=== PATIENT | male | born 1940 | race Caucasian/White ===

== ENCOUNTER 2017-10-01 03:58 | Emergency (ER) | payer OTHER, MEDICARE ==
[~2017-10-01] VITALS: Ht 180.3 cm; Wt 77.1 kg
[~2017-10-01 03:58] MED LIST: ASPIR 8181 MG PO; ATORVASTATIN CA10 MG PO; FISH OIL CONCEN1 SGL PO; LOPRESSOR50 MG PO; MULTIVITAMIN1 TAB PO; PRINIVIL10 MG PO; VALTREX500 MG PO
--- NOTE | 2017-10-01 04:22 | ED DYSPNEA/ASTHMA COMPLAINT ---
History of Present Illness General Chief Complaint: Upper Respiratory Sx/Fever Stated Complaint: PER PT COUGHING,SNEEZING,X'S 1 1/2 WKS Source: patient Exam Limitations: no limitations Vital Signs & Intake/Output Vital Signs & Intake/Output Vital Signs Date Time Temp Pulse Resp B/P B/P Pulse O2 O2 Flow FiO2 Mean Ox Delivery Rate 10/01 0600 97.3 62 16 112/65 96 Room Air 10/01 0545 Room Air 10/01 0410 97.1 51 16 116/66 97 Room Air Allergies Coded Allergies: NO KNOWN ALLERGIES (10/01/17) Reconcile Medications Amoxicillin/Potassium Clav (Augmentin 875-125 Tablet) 875 MG-125 MG TABLET 1 TAB PO BID bronchitis Aspirin (Ecotrin) 81 MG TABLET.DR 1 TAB PO DAILY HEART HEALTH (Reported) Atorvastatin Calcium (Lipitor) (Unknown Strength) TABLET (Unknown Dose) PO DAILY CHOLESTEROL (Reported) Benzonatate (Tessalon Perle) 100 MG CAPSULE 1 CAP PO TID PRN cough Lisinopril (Prinivil) (Unknown Strength) TABLET (Unknown Dose) PO DAILY BP ( Reported) Loratadine (Claritin) 10 MG TABLET 1 TAB PO DAILY allergies Metoprolol Tartrate (Lopressor) (Unknown Strength) TAB (Unknown Dose) PO BID BP (Reported) Multivitamin (Multiple Vitamins) 1 EACH TABLET 1 TAB PO DAILY SUPPLEMENT ( Reported) OMEGA-3 FATTY ACIDS (Fish Oil Concentrate) 1,000 MG CAPSULE 1 SGL PO DAILY SUPPLEMENT (Reported) Prednisolone 15 MG/5 ML SOLUTION 10 ML PO QDAY ASTHMA/bronchitis Valacyclovir Hydrochloride (Valtrex) 500 MG TABLET 2 TAB PO TID SHINGLES Triage Note: 77YO MALE TO TRIAGE W/CO "COLD SX X 1 WEEK" STATES "HE HAS BEEN SNEEZING AND COUGHING AND FEELS CONGESTED IN HIS CHEST. RA SAT = 97 Triage Nurses Notes Reviewed? yes Onset: Gradual Duration: day(s):, waxing and waning Timing: recent history Severity: mild, moderate Activities at Onset: none Prior Episodes/Possible Cause: no prior episodes Modifying Factors: Improves With: rest. Associated Symptoms: cough, wheezing HPI: 77 yo gentleman h/o of "dormant" MS, presents with 1.5 weeks of cough, phlegm, mild wheeze. "It started as a head cold, but now I have more phlegm." No fever, chills, cough, Past History Travel History Traveled to [place] past 21 day No Medical History Any Pertinent Medical History? see below for history Neurological: multiple sclerosis EENT: NONE Cardiovascular: hypertension, hyperlipidemia Respiratory: NONE Gastrointestinal: NONE Hepatic: NONE Renal: NONE Musculoskeletal: NONE Psychiatric: NONE Endocrine: NONE Surgical History Surgical History: non-contributory Psychosocial History What is your primary language Divehi Tobacco Use: Quit >30 days ago Family History Hx Contributory? No Review of Systems Review of Systems Constitutional: Reports: no symptoms. EENTM: Reports: no symptoms. Respiratory: Reports: no symptoms. Cardiovascular: Reports: no symptoms. GI: Reports: no symptoms. Genitourinary: Reports: no symptoms. Musculoskeletal: Reports: no symptoms. Skin: Reports: no symptoms. Neurological/Psychological: Reports: no symptoms. Hematologic/Endocrine: Reports: no symptoms. Immunologic/Allergic: Reports: no symptoms. All Other Systems: Reviewed and Negative Physical Exam Physical Exam General Appearance: well developed/nourished, mild distress Head: atraumatic, normal appearance Eyes: Bilateral: normal appearance. Ears, Nose, Throat: normal pharynx, normal ENT inspection Neck: normal inspection, supple, full range of motion Respiratory: bilateral mild rhonchi Cardiovascular: regular rate/rhythm Gastrointestinal: normal bowel sounds, soft, non-tender Extremities: normal inspection, normal capillary refill, normal range of motion, no edema Neurologic/Psych: no motor/sensory deficits, awake, alert, oriented x 3 Skin: intact, normal color, warm/dry Core Measures ACS in differential dx? No CVA/TIA Diagnosis No Sepsis Present: No Sepsis Focused Exam Completed? No Progress Differential Diagnosis: asthma, bronchitis, COPD, pneumonia Plan of Care: Orders Procedure Date/time Status AEROSOL (GEN) 10/01 601 Complete Diagnostic Imaging: Viewed by Me: Radiology Read. Discussed w/RAD: Radiology Read. CXR Impression: no acute abnormality, no infiltrates, normal size heart, normal mediastinum, PATIENT: HAM HAIRSTON PRESENT AGE: 77 PATIENT ACCOUNT NO: [id number] : 41 LOCATION: [facility] ORDERING PHYSICIAN: Shaan Angela MD SERVICE DATE: 10/01/172094 EXAM TYPE: RAD - XRY- PORTABLE CHEST XRAY EXAMINATION: XR PORTABLE CHEST CLINICAL INFORMATION: Cough, congestion for one week COMPARISON: 04/14/2009 TECHNIQUE: Portable frontal view of the chest was obtained. FINDINGS: Lung volumes are symmetric. No focal consolidation is seen. No evidence of pneumothorax, pleural effusion, or overt pulmonary edema. The cardiomediastinal contour is unremarkable. No acute osseous findings are seen. IMPRESSION: No acute cardiopulmonary findings. DICTATED BY: Anish Barahona MD DATE/TIME DICTATED:10/01/17513 SPRING FORMER:JEANMARIE DATE/TIME TRANSCRIBED:10/01/17513 CONFIDENTIAL, DO NOT COPY WITHOUT APPROPRIATE AUTHORIZATION. <Electronically signed in Other Vendor System> SIGNED BY: Anish Barahona MD 10/01/17518 Initial ED EKG: none Departure Departure Disposition: HOME OR SELF CARE Condition: Stable Clinical Impression Primary Impression: Bronchitis Referrals: Coral Alicea MD (PCP/Family) Departure Forms: Customer Survey General Discharge Information Prescriptions: Current Visit Scripts Loratadine (Claritin) 1 TAB PO DAILY #30 TAB Prednisolone 10 ML PO QDAY #40 ML Amoxicillin/Potassium Clav (Augmentin 875-125 Tablet) 1 TAB PO BID #20 TAB Benzonatate (Tessalon Perle) 1 CAP PO TID PRN cough #30 CAP Comments 10/01/17, 6:03am... pt feeling well after neb. cxr negative... he is otherwise well... pt stable for discharge w/ augmentin, prednisone, supportive medications... close follow up advised. Critical Care Note Critical Care Note Critical Care Time: non-applicable
[2017-10-01] MEDS ORDERED: TESSALON PERLE100 M1 PO (05:12)
[2017-10-01] MEDS ORDERED: AUGMENTIN 875-1 EACH PO (05:12)
[2017-10-01] MEDS ORDERED: PREDNISOLO15 MG/5 M4 PO (05:12)
[2017-10-01] MEDS ORDERED: CLARITIN10 M1 PO (05:12)
--- NOTE | 2017-10-01 05:19 | RADIOLOGY REPORT ---
EXAMINATION: XR PORTABLE CHEST CLINICAL INFORMATION: Cough, congestion for one week COMPARISON: 04/14/2009 TECHNIQUE: Portable frontal view of the chest was obtained. FINDINGS: Lung volumes are symmetric. No focal consolidation is seen. No evidence of pneumothorax, pleural effusion, or overt pulmonary edema. The cardiomediastinal contour is unremarkable. No acute osseous findings are seen. IMPRESSION: No acute cardiopulmonary findings.
[2017-10-01 06:00] VITALS: BP 112/65
[2017-10-04] MEDS ORDERED: PROVENTIL HFA6.7 GM INH (16:10)
== END 2017-10-01 06:01 ==
LOC: ERH 03:58
DX: J40 Bronchitis, not specified as acute or chronic (principal)
CPT/HCPCS: 1263; 71045; J3490

== ENCOUNTER 2017-12-29 05:34 | Inpatient (IN) | payer OTHER, MEDICARE ==
[~2017-12-29] VITALS: Ht 182.9 cm; Wt 75.3 kg
[~2017-12-29 05:34] MED LIST changes: +AUGMENTIN 875-1 EACH PO; +CLARITIN10 M1 PO; +PREDNISOLO15 MG/5 M4 PO; +PROVENTIL HFA6.7 GM INH; +TESSALON PERLE100 M1 PO
--- NOTE | 2017-12-29 06:03 | ED CARDIAC/CP/PALPITATIONS ---
History of Present Illness General Chief Complaint: Chest Pain Stated Complaint: CHEST PAIN Source: patient, family, old records, EMS Exam Limitations: no limitations Vital Signs & Intake/Output Vital Signs & Intake/Output Vital Signs Date Time Temp Pulse Resp B/P B/P Pulse O2 O2 Flow FiO2 Mean Ox Delivery Rate 12/29 0629 60 20 105/58 96 Room Air / 0626 58 20 105/59 96 Room Air 12/29 0610 64 20 102/54 96 Room Air 12/29 0603 54 22 111/57 96 Room Air 12/29 0550 Room Air 12/29 0538 97.7 64 22 123/60 99 Room Air Allergies Coded Allergies: NO KNOWN ALLERGIES (10/01/17) Reconcile Medications Albuterol Sulfate (Proventil Hfa) 90 MCG HFA.AER.AD 2 PUF INH Q4 ASTHMA Amoxicillin/Potassium Clav (Augmentin 875-125 Tablet) 875 MG-125 MG TABLET 1 TAB PO BID bronchitis Aspirin (Ecotrin) 81 MG TABLET.DR 1 TAB PO DAILY HEART HEALTH (Reported) Atorvastatin Calcium (Lipitor) (Unknown Strength) TABLET (Unknown Dose) PO DAILY CHOLESTEROL (Reported) Benzonatate (Tessalon Perle) 100 MG CAPSULE 1 CAP PO TID PRN cough Lisinopril (Prinivil) (Unknown Strength) TABLET (Unknown Dose) PO DAILY BP ( Reported) Loratadine (Claritin) 10 MG TABLET 1 TAB PO DAILY allergies Metoprolol Tartrate (Lopressor) (Unknown Strength) TAB (Unknown Dose) PO BID BP (Reported) Multivitamin (Multiple Vitamins) 1 EACH TABLET 1 TAB PO DAILY SUPPLEMENT ( Reported) OMEGA-3 FATTY ACIDS (Fish Oil Concentrate) 1,000 MG CAPSULE 1 SGL PO DAILY SUPPLEMENT (Reported) Prednisolone 15 MG/5 ML SOLUTION 10 ML PO QDAY ASTHMA/bronchitis Valacyclovir Hydrochloride (Valtrex) 500 MG TABLET 2 TAB PO TID SHINGLES Core Measure Meds Pre-Hospital aspirin Triage Note: BIBA FROM HOME. PER EMS, PT WOKE UP APPROX AN HOUR AGO WITH CHEST TIGHTNESS AND DIFFICULTY BREATHING. 20 RIGHT AC. 324MG ASA PO. BG 142. PT C/O CHEST TIGHTNESS AT THIS TIME. PER PT TIGHTNESS IS A 5/10. PT STATES "IT'S HARD TO CATCH MY BREATH." PT DENIES ANY OTHER COMPLAINTS AT THIS TIME. Triage Nurses Notes Reviewed? yes Onset: Just prior to arrival Duration: minute(s):, constant, continues in ED Timing: recent history Quality/Severity: moderate, tightness Location: substernal Radiation: no radiation Activities at Onset: sleep Prior Chest Pain/Card Workup: no prior chest pain Nitro Today/Relief: 0.4 mg x 1, provided by ED, complete relief Aspirin Today: 325 mg x 1, provided by EMS Associated Symptoms: shortness of breath HPI: Prior to admission the patient woke up with severe substernal chest tightness nonradiating associated with shortness of breath and diaphoresis. He received aspirin en route. He denies fever chills nausea vomiting diarrhea abdominal pain headache dysuria rash bleeding previous episodes. Past History Travel History Traveled to [place] past 21 day No Medical History Any Pertinent Medical History? see below for history Neurological: multiple sclerosis EENT: NONE Cardiovascular: hypertension, hyperlipidemia Respiratory: NONE Gastrointestinal: NONE Hepatic: NONE Renal: NONE Musculoskeletal: NONE Psychiatric: NONE Endocrine: NONE Surgical History Surgical History: non-contributory Psychosocial History What is your primary language Danish Tobacco Use: Quit >30 days ago Family History Hx Contributory? No Review of Systems Review of Systems Constitutional: Reports: see HPI, diaphoresis. EENTM: Reports: no symptoms. Respiratory: Reports: see HPI, short of breath. Cardiovascular: Reports: see HPI, chest pain. GI: Reports: no symptoms. Genitourinary: Reports: no symptoms. Musculoskeletal: Reports: no symptoms. Skin: Reports: no symptoms. Neurological/Psychological: Reports: no symptoms. Hematologic/Endocrine: Reports: no symptoms. Immunologic/Allergic: Reports: no symptoms. All Other Systems: Reviewed and Negative Physical Exam Physical Exam General Appearance: well developed/nourished, alert, awake, anxious, moderate distress Head: atraumatic, normal appearance Eyes: Bilateral: normal appearance, PERRL, EOMI. Ears, Nose, Throat: normal pharynx, normal ENT inspection, hearing grossly normal Neck: normal inspection, supple, full range of motion, no midline tenderness Respiratory: normal breath sounds, chest non-tender, no respiratory distress, quiet respiration, lungs clear Cardiovascular: regular rate/rhythm, normal peripheral pulses, norml femoral pulses equa Peripheral Pulses: 4+ carotid (R), 4+ carotid (L) Gastrointestinal: normal bowel sounds, soft, non-tender, no organomegaly Back: normal inspection, normal range of motion, no vertebral tenderness Extremities: normal inspection, normal capillary refill, normal range of motion, no edema Neurologic/Psych: no motor/sensory deficits, awake, alert, oriented x 3, normal gait, normal mood/affect Reflexes: 2+: bicep (R), bicep (L). Skin: intact, normal color, warm/dry Lymphatic: no anterior cervical shayla Core Measures ACS in differential dx? Yes CVA/TIA Diagnosis No Sepsis Present: No Sepsis Focused Exam Completed? No Progress Differential Diagnosis: atrial fibrillation, CHF/pulm edema, costochondritis, hyperkalemia, hypovolemia Plan of Care: Orders Procedure Date/time Status Regular Diet 12/29 B Active OXYGEN SETUP (GEN) 12/29 710 Active Saline Lock 12/29 710 Active Admit to inpatient 12/29 710 Active Vital Signs 12/29 710 Active Activity/Ambulation 12/29 710 Active Code Status 12/29 710 Active TROPONIN LEVEL 12/29 548 Complete MAGNESIUM 12/29 548 Complete LIPASE 12/29 548 Complete COMPREHENSIVE METABOLIC PANEL 12/29 548 Complete CBC WITHOUT DIFFERENTIAL 12/29 548 Complete B-TYPE NATRIURETIC PEP (BNP) 12/29 548 Complete EKG 12/29 540 Active Laboratory Tests 12/29/17 0555: Anion Gap 7, Estimated GFR > 60, BUN/Creatinine Ratio 30.0 H, Glucose 117 H, Calcium 9.4, Magnesium 2.1, Total Bilirubin 1.3, AST 27, ALT 36, Alkaline Phosphatase 71, Troponin I 0.04, Lgo-T-Avsoqonmoig Pept 1500 H, Total Protein 6.6, Albumin 3.8, Globulin 2.8, Albumin/Globulin Ratio 1.4, Lipase 92, CBC w Diff NO MAN DIFF REQ, RBC 4.06 L, MCV 95.3 H, MCH 32.5 H, MCHC 34.1, RDW 13.3 , MPV 8.9, Gran % 72.3, Lymphocytes % 10.6 L, Monocytes % 11.0 H, Eosinophils % 5.6 H, Basophils % 0.5, Absolute Granulocytes 9.3 H, Absolute Lymphocytes 1.4, Absolute Monocytes 1.4 H, Absolute Eosinophils 0.7, Absolute Basophils 0.1 Diagnostic Imaging: Viewed by Me: Radiology Read. Discussed w/RAD: Radiology Read. Radiology Impression: Interstitial pulmonary edema. Initial ED EKG: normal axis, none, normal intervals, normal p-waves, normal QRS complex, nonspecific ST T wave chg Prior EKG: changed (flat t AVL) Rhythm Strip: normal sinus rhythm Departure Departure Disposition: STILL A PATIENT Condition: Stable Clinical Impression Primary Impression: Chest pain in adult Secondary Impressions: CHF (congestive heart failure), Leukocytosis Referrals: Coral Alicea MD (PCP/Family) Departure Forms: Customer Survey General Discharge Information Admission Note Spoke With: Megha Alvarez MD Documentation of Exam: Documentation of any treatments & extenuating circumstances including Concerns Regarding Discharge (functional status, medication knowledge or non-compliance, living conditions, etc.) that warrant an admission rather than observation: Cardiac monitoring serial lab exam IV diuresis medication adjustment cardiology evaluation continuing care discharge planning Critical Care Note Critical Care Note Critical Care Time: 30-74 min (35)
[2017-12-29 06:14] LABS: ABSOLUTE BASOPHIL COUNT 0.1 /CUMM (0.0-0.2); ABSOLUTE EOSINOPHIL COUNT 0.7 /CUMM (0.0-0.7); ABSOLUTE GRANULOCYTE CT 9.3 /CUMM (1.4-6.5); ABSOLUTE LYMPH COUNT 1.4 /CUMM (1.2-3.4); ABSOLUTE MONOCYTE COUNT 1.4 /CUMM (0.10-0.60); BASOPHIL % 0.5 % (0.0-2.0); EOSINOPHIL % 5.6 % (0-5); HEMATOCRIT 38.7 % (42-52); MEAN CORPUSCULAR HGB 32.5 PG (27.0-31.0); MEAN CORPUSCULAR HGB CONC 34.1 G/DL (33.0-37.0); MEAN CORPUSCULAR VOLUME 95.3 FL (80.0-94.0); MEAN PLATELET VOLUME 8.9 FL (7.4-10.4); PLATELET COUNT 209 /CUMM (130-400); RBC DISTRIBUTION WIDTH 13.3 % (11.5-14.5); RED BLOOD CELL CT 4.06 /CUMM (4.70-6.10); WHITE BLOOD CELL COUNT 12.9 /CUMM (4.8-10.8)
[2017-12-29 06:21] LABS: GRANULOCYTE % 72.3 % (42.2-75.2)
--- NOTE | 2017-12-29 07:05 | RADIOLOGY REPORT ---
EXAMINATION: XR PORTABLE CHEST CLINICAL INFORMATION: 77-year-old male patient with chest pain and shortness of breath. COMPARISON: Portable chest x-ray on 10/01/2017. TECHNIQUE: Portable AP semierect view of the chest was obtained. FINDINGS: Reexamination shows the onset of bilateral interstitial pulmonary edema consistent with cardiac failure. There may be trace bilateral pleural effusions. IMPRESSION: Interstitial pulmonary edema.
--- NOTE | 2017-12-29 08:30 | History & Physical ---
Santiago Gordon 12/29/17 0828: General Information and HPI MD Statement: I have seen and personally examined HAM HAIRSTON and documented this H&P. The patient is a 77 year old M who presented with a patient stated chief complaint of chest tightness Source of Information: patient, family Exam Limitations: no limitations History of Present Illness: Mr Hairston is a 77-year-old gentleman with a PMHx of multiple sclerosis(dx'ed 56 yrs ago in remission), hypertension, hyperlipidemia, previous smoker(30 pk yr h/ o), with no previous cardiac history, came to the hospital with a chief concern of chest tightness that started a few hours prior to the hospital presentation. He was known to be in his usual state of health until a few days prior to the episode. He is usually active, and noticed decreased exercise tolerance; and reported increasing fatigue lately. Reported to have had pedal edema one day prior to the episode. No orthopnea, or exertional dyspnea. On the day of presentation, he reported to have chest tightness associated with dyspnea that woke him up from sleep around 4 AM , that lasted for approximately 30'-1 hour. As per the , Mr Hairston appeared diaphoretic and pale during the episode. He was given aspirin 325mg by the EMS, and NTG in the ER as per EMR which relieved his symptoms. No previous concerns. No recent stressors, or changes in diet. No history of salt indiscretion. No vision changes, no lightheadeness, palpitations , cough, fever or changes in urination. No tremors, or unintentional weight loss or weight gain. No neurological symptoms s/o stroke. No significant cardiac history. No previous cardiac work up, or hospitalizations. Allergies/Medications Allergies: Coded Allergies: NO KNOWN ALLERGIES (10/01/17) Home Med list Aspirin (Aspirin*) 81 MG TAB.CHEW 1 TAB PO DAILY HEART HEALTH (Reported) Atorvastatin Calcium (Lipitor) 10 MG TABLET 1 TAB PO DAILY heart health ( Reported) Finasteride (Proscar) 5 MG TABLET 1 TAB PO DAILY BLADDER (Reported) Lisinopril 10 MG TABLET 1 TAB PO DAILY BP (Reported) Metoprolol Tartrate (Lopressor) 50 MG TABLET 1 TAB PO BID heart health ( Reported) Compliance With Home Meds: GOOD Past History Travel History Traveled to [place] past 21 day No Medical History Neurological: multiple sclerosis EENT: NONE Cardiovascular: hypertension, hyperlipidemia Respiratory: NONE Gastrointestinal: NONE Hepatic: NONE Renal: NONE Musculoskeletal: NONE Psychiatric: NONE Endocrine: NONE Surgical History Surgical History: non-contributory Past Family/Social History Family History Relations & Conditions if any MOTHER Functional Ability ADLs Independent: dressing, eating, toileting, bathing. Review of Systems Review of Systems Constitutional: Reports: see HPI. Denies: chills, fever. EENTM: Denies: blurred vision, double vision, visual changes. Cardiovascular: Denies: chest pain. Respiratory: Reports: short of breath. Denies: cough. GI: Denies: diarrhea, melena. Genitourinary: Denies: dysuria. Musculoskeletal: Reports: back pain. Denies: joint pain. Skin: Denies: change in skin color. Neurological/Psychological: Reports: ataxia, numbness (due to long standing MS). Denies: anxiety, headache, paresthesia. Hematologic/Endocrine: Denies: bruising. Exam & Diagnostic Data Last 24 Hrs of Vital Signs/I&O Vital Signs Date Time Temp Pulse Resp B/P B/P Pulse O2 O2 Flow FiO2 Mean Ox Delivery Rate 12/29 0824 98.2 62 18 121/62 97 Room Air Room Air 12/29 0629 60 20 105/58 96 Room Air / 0626 58 20 105/59 96 Room Air 12/29 0610 64 20 102/54 96 Room Air 12/29 0603 54 22 111/57 96 Room Air 12/29 0550 Room Air 12/29 0538 97.7 64 22 123/60 99 Room Air Intake & Output 12/29 1600 12/29 0800 12/29 0000 Intake Total 0 Output Total Balance 0 Intake, Oral 0 Patient 175 lb Weight Weight Reported by Patient Measurement Method Physical Exam General Appearance Alert, Oriented X3, Cooperative, No Acute Distress Skin No Rashes, No Breakdown, No Significant Lesion Skin Temp/Moisture Exam: Warm/Dry Sepsis Skin Exam (color): Normal for Ethnicity HEENT Atraumatic, PERRLA, EOMI, Mucous Membr. moist/pink Neck Supple, No JVD, No thryomegaly Lymphatic Axillary nl, Cervical nl Cardiovascular Regular Rate, Normal S1, Normal S2, No Murmurs Lungs Clear to Auscultation, Normal Air Movement Abdomen Normal Bowel Sounds, Soft, No Tenderness, No Hepatospenomegaly Neurological Normal Speech, Strength at 5/5 X4 Ext, Normal Tone, Sensation Intact, Cranial Nerves 3-12 NL, Reflexes 2+ Extremities No Clubbing, No Cyanosis, Normal Pulses, No Tenderness/Swelling, pedal edema 1+ Vascular Normal Pulses, Pulses Symmetrical Sepsis Peripheral Pulse Location: Dorsalis Pedis Sepsis Peripheral Pulse Exam: Normal Sepsis Cap Refill Exam: <2 Sec Last 24 Hrs of Labs/Remigio: Laboratory Tests 12/29/17 0555: Anion Gap 7, Estimated GFR > 60, BUN/Creatinine Ratio 30.0 H, Glucose 117 H, Calcium 9.4, Magnesium 2.1, Total Bilirubin 1.3, AST 27, ALT 36, Alkaline Phosphatase 71, Troponin I 0.04, Ais-P-Tetkxhsfkho Pept 1500 H, Total Protein 6.6, Albumin 3.8, Globulin 2.8, Albumin/Globulin Ratio 1.4, Lipase 92, CBC w Diff NO MAN DIFF REQ, RBC 4.06 L, MCV 95.3 H, MCH 32.5 H, MCHC 34.1, RDW 13.3 , MPV 8.9, Gran % 72.3, Lymphocytes % 10.6 L, Monocytes % 11.0 H, Eosinophils % 5.6 H, Basophils % 0.5, Absolute Granulocytes 9.3 H, Absolute Lymphocytes 1.4, Absolute Monocytes 1.4 H, Absolute Eosinophils 0.7, Absolute Basophils 0.1 Diagnostic Data EKG Results NSR, LAD, LAFB, First degree heart block, Incomplete LBBB. CXR Results s/o Interstitial edema Assessment/Plan Assessment: Mr Hairston is a 77-year-old gentleman with a PMHx of multiple sclerosis, hypertension, hyperlipidemia, previous smoker, with no previous cardiac history, came to the hospital with a chief concern of chest tightness that started a few hours prior to the hospital presentation likely secondary to unstable angina or CHF. At the time of admission-temperature 97.7, pulse rate 64, respiration 22, blood pressure 123/60--respiration 20, pulse ox 96% on room air. EKG revealed normal sinus rhythm, LAD, LAFB, First degree HB, and incomplete LBBB. Pertinent lab findings- WBC 12.9 (granulocytes 72%), hemoglobin 13.2, platelets 209. Sodium 137, potassium 4.2, magnesium 2.1,bicarbonate 25 BUN 18, creatinine 0.6 AST 27, ALT 36, alkaline phosphatase 71. Troponin I 0.04, proBNP 1500. Chest x-ray revealed bilateral interstitial pulmonary edema. Etiology in this case is likely unstable angina with symptoms of angina w/o elevated cardiac enzymes with positive cardiac risk factors previous smoking, age > 50 male, HLD, HTN. Having these EKG findings which makes [place] a very important etiology that needs to be ruled out, that may have contributed to pulmonary edema. Other possibility is having a diastolic HF secondary to age+HTN , that may have caused pulmonary edema. Given this acute decompensated heart failure which is a rapidly progressive failure state given a possible precipitating event, diet/htn on chronic systolic or diastolic left-sided heart failure. Other etiologies such as myocardial ischemia should be ruled out.Patients with unstable angina requiring admission to inpatient hospital. Problem list: 1. Unstable angina, r/o ACS 2. Acute decompensated HF, very mild ( Echo pending ) 3. h/o MS 4. h/o HTN 5. h/o HLD 6. Leucocytosis ( livkely reactive, no granulocytosis ) # admit to telemetry for cardiac monitoring of any arrythmias. # non enteric coated aspirin 325 mg given by the EMS and daily aspirin and Atorvastatin 80mg daily. # serial electrocardiograms, cardiac enzymes every 8 hours # for the management of angina- NTG 0.5mg q6. # 2D Echo # metoprolol succinate 25mg BID, which can be increased to his home dose of 50mg BID once the echocardiogram is reviewed, and acute decompensation is ruled out. # No IV heparin at this time. Discuss w/ cards, if needed during the hospital course. # discuss early intervention with cardiac catheterization, if he develops any more symptoms. # check thyroid function # daily Ins and Outs,daily weights # IV diuretics furosemide 20 mg twice a day, since he is diuretic naive. #Check BEP daily while on diuretics. #supplemental oxygen as needed # Elevate head of the bed to reduce venous return #Consider NIPPV to reduce work of breathing, improve oxygenation, if symptoms get worse. # Continue ACEi Lisinopril 10mg which is his home dose. # CHF diet, 2gm salt restriction Code status- Full code. Med list updated. Called [facility]. As Ranked By This Provider Problem List: 1. CHF (congestive heart failure) 2. Chest pain in adult Core Measures/Misc (02/13) Acute Coronary Syndrome ACS Diagnosis: Yes Congestive Heart Failure Congestive Heart Failure Diagnosis Yes Cerebrovascular Accident CVA/TIA Diagnosis: No VTE (View Protocol) VTE Risk Factors Acute Medical Illness No Mechanical VTE Prophylaxis d/t N/A MechProphylax Ordered No VTE Pharm Prophylaxis d/t NA PharmProphylax ordered Sepsis (View protocol) Sepsis Present: No If YES complete Sepsis Event Note If YES complete Sepsis Event Note Megha Alvarez MD 12/29/17 1440: Core Measures/Misc (02/13) Sepsis (View protocol) If YES complete Sepsis Event Note If YES complete Sepsis Event Note Attending MD Review Statement Attending Statement Attending MD Statement: examined this patient, discuss w/resident/PA/DEPOT AGENT, agreed w/resident/PA/DEPOT AGENT, reviewed EMR data (avail), discussed with nursing, discussed with case mgmt, amended to note Attending Assessment/Plan: Patient seen and examined. I have reviewed and agree with the history and physical is admitted by the certified court/medical interpreter above. Patient was admitted to the hospital for management of acute pulmonary edema which appears to be secondary to congestive heart failure. We will receive diuresis with Lasix 20 mg IV daily as he does not appear to be overtly fluid overloaded and blood pressure was borderline earlier on today. An echocardiogram has been ordered and we will rule out acute coronary syndrome with serial troponins. If his troponins are negative he will require further risk stratification with a stress test. Will defer timing of the procedure to the cardiology service. Patient is noted to have leukocytosis. He is however afebrile and does not appear toxic. This is less likely due to an infectious etiology. Will repeat CBC in a.m. if patient becomes febrile will obtain blood cultures at that time.
[2017-12-29] MEDS ORDERED: ASPIRIN81 M4 PO (08:43)
[2017-12-29] MEDS ORDERED: ATORVASTATIN CA40 M1 PO (08:44)
[2017-12-29] MEDS ORDERED: LISINOPRIL10 M1 PO (08:44)
[2017-12-29] MEDS ORDERED: PROSCAR5 M1 PO (08:44)
[2017-12-29] MEDS ORDERED: LIPITOR10 M1 PO (09:12)
[2017-12-29] MEDS ORDERED: LOPRESSOR50 M1 PO (09:13)
[2017-12-29 10:43] VITALS: BP 130/76
[2017-12-29 14:43] VITALS: BP 128/75
--- NOTE | 2017-12-29 17:12 | Event Note ---
Event Note Event Note: Mr Hodge is a 77 y/o gentleman who was admitted in the morning with the cheif complint of chest pain and initial EKG consistent with Incomplete LBBB and poor R-wave progression in ant leads. Initial Troponin was negative but the 2nd one came back elevated to 19.0. He did not have any chest pain at that time and vitals were stable. Repeat EKG was done which continued to showed poor R-wave in ant leads consistent with ant wall RI. Patient was started on full anticoagulation with aspirin 325mg daily, Plavix 75mg daily after a 300mg loading dose, IV heparin per ACS protocol after discussion with Dr. Cortes. Nitroglycerin was already started since admission. Atorvastatin and metoprolol(home meds) were continued. He also had a 3 beat run of Vtac on monitoring tech. Patint was transferred to ICU with plans to trend troponins until they peak and was made NPO for cardiac cath in am. Patient should be transferred stat in case of any clinical deterioration.
--- NOTE | 2017-12-29 17:15 | Cons- Cardiology ---
General Information and HPI Consulting Request Date of Consult: 12/29/17 Requested By: Megha Alvarez MD History of Present Illness: Mr. Hodge is a 77 year old male with history of hypertension and dyslipidemia. He also carries a history of multiple sclerosis. He was awakened from sleep at about 4AM with severe precordial chest pressure that was non-radiating. It was associated with nausea and diaphoresis as well as shortness of breath. He otherwise denies lightheadedness or palpitations. He is ruling in for an ME by cardiac enzymes and has an IVCD on his ECG with abnormal R wave progression. Allergies/Medications Allergies: Coded Allergies: NO KNOWN ALLERGIES (10/01/17) Home Med List: Aspirin (Aspirin*) 81 MG TAB.CHEW 1 TAB PO DAILY HEART HEALTH (Reported) Atorvastatin Calcium (Lipitor) 10 MG TABLET 1 TAB PO DAILY heart health ( Reported) Finasteride (Proscar) 5 MG TABLET 1 TAB PO DAILY BLADDER (Reported) Lisinopril 10 MG TABLET 1 TAB PO DAILY BP (Reported) Metoprolol Tartrate (Lopressor) 50 MG TABLET 1 TAB PO BID heart health ( Reported) Review of Systems Review of Systems: A review of systems is unremarkable. Past History Travel History Traveled to [place] past 21 day No Medical History Blood Transfusion Hx: No Neurological: multiple sclerosis EENT: NONE Cardiovascular: hypertension, hyperlipidemia Respiratory: NONE Gastrointestinal: NONE Hepatic: NONE Renal: NONE Musculoskeletal: NONE Psychiatric: NONE Endocrine: NONE Blood Disorders: NONE Cancer(s): NONE SUPER[employer]OR [employer] DIVISION/Reproductive: NONE Surgical History Surgical History: non-contributory Family History Relations & Conditions If Any: MOTHER Psychosocial History Where Do You Live? Home Smoking Status: Former Smoker Functional Ability ADLs Independent: dressing, eating, toileting, bathing. Exam & Diagnostic Data Vital Signs and I&O Vital Signs Date Time Temp Pulse Resp B/P B/P Pulse O2 O2 Flow FiO2 Mean Ox Delivery Rate 12/29 1443 98.0 63 16 128/75 95 Room Air / 1333 134/88 12/29 1333 134/88 08 1043 97.7 63 18 130/76 96 Room Air 12/29 0950 97 Room Air Room Air 12/29 0824 98.2 62 18 121/62 97 Room Air Room Air 12/29 0629 60 20 105/58 96 Room Air /02 0626 58 20 105/59 96 Room Air 12/29 0610 64 20 102/54 96 Room Air 12/29 0603 54 22 111/57 96 Room Air 12/29 0550 Room Air 12/29 0538 97.7 64 22 123/60 99 Room Air Intake & Output 12/29 1600 12/29 0800 12/29 0000 12/28 1600 12/28 0800 12/28 0000 Intake Total 400 0 Output Total 2325 Balance -1925 0 Intake, Oral 400 0 Output, Urine 2325 Patient 177 lb 175 lb Weight Weight Bed scale Reported by Patient Measurement Method Physical Exam: General: WD/WN male in NAD; alert and oriented x 3 HEENT: NC/AT, PERRL, EOMI Neck: no JVD, no carotid bruit heart: RRR w/o murmur Lungs: clear bilaterally Abdomen: soft, NT, +ve bowel sounds Extremities: no edema Assessment/Plan Assessment/Plan * This patient is ruling in for a NSTEMI by cardiac enzymes. He is now pain free but has abnormal R wave progression consistent with an anterior ME. Follow cardiac enzymes until they peak. * Obtain an echocardiogram. * Begin full anticoagulation with aspirin 325mg daily, Plavix 75mg daily after a 300mg loading dose, IV heparin. * Begin Atorvastatin 80mg daily. Continue Metoprolol 50mg BID and Lisinopril 10mg daily. Begin NTG paste 1/2 inch Q 6 hours. * Begin supplemental oxygen. * A cardiac catheterization is planned for the morning. Will have a low threshold for emergent cath, if necessary. Consult Acknowledgment - Thank you for your consult request.
--- NOTE | 2017-12-29 17:37 | Patient Discharge Instructions ---
Discharge Instructions General Discharge Information You were seen/treated for: Chest pain Special Instructions: being transferred for cardiac catheterization Diet Additional DIET Information: NPO Activity Activity Self Limited: Yes Acute Coronary Syndrome Inclusion Criteria At DC or during hospital stay patient has or had the following: ACS DIAGNOSIS Yes Discharge Core Measures Meds if any: Prescribed or Continued at Discharge Meds if any: NOT Prescribed or Continued at Discharge Congestive Heart Failure Inclusion Criteria At DC or during hospital stay patient has or had the following: CHF DIAGNOSIS No Discharge Core Measures Meds if any: Prescribed or Continued at Discharge Meds if any: NOT Prescribed or Continued at Discharge Cerebrovascular accident Inclusion Criteria At DC or during hospital stay patient has or had the following: CVA/TIA Diagnosis No Discharge Core Measures Meds if any: Prescribed or Continued at Discharge Meds if any: NOT Prescribed or Continued at Discharge Venous thromboembolism Inclusion Criteria VTE Diagnosis No VTE Type NONE VTE Confirmed by (Test) NONE Discharge Core Measures - Per Current guidelines, there needs to be overlap - treatment for the first 5 days of Warfarin therapy. - If discharged on Warfarin prior to 5 days of - overlap therapy, the patient will need to be - assessed for post discharge needs including - *Post discharge parental anticoagulation - *Warfarin and/or parental anticoagulation education - *Follow up date to check INR post discharge At least 5 days overlap therapy as Inpatient No Meds if any: Prescribed or Continued at Discharge Note: Overlap Therapy is Warfarin and Anticoagulant Meds if any: NOT Prescribed or Continued at Discharge
[2017-12-29] MEDS ORDERED: ATORVASTATIN CA80 M1 PO (17:40)
[2017-12-29] MEDS ORDERED: ASPIRIN EC325 M2 PO (17:40)
[2017-12-29] MEDS ORDERED: NITRO-BID1 GM TOP (17:40)
[2017-12-29] MEDS ORDERED: PLAVIX75 M1 PO (17:41)
--- NOTE | 2017-12-29 17:54 | Discharge Summary ---
Visit Information Visit Dates Admission Date: 12/29/17 Discharge Date: 12/30/17 Hospital Course Course Attending Physician: Zoe Alvarez MDadryan Primary Care Physician: Deanne LUEVANO,[place] Hospital Course: Mr Hodge is a 77-year-old gentleman with a PMHx of multiple sclerosis(dx'ed 56 yrs ago in remission), hypertension, hyperlipidemia, previous smoker(30 pk yr h/ o), with no previous cardiac history, came to the hospital with a chief concern of chest tightness that started a few hours prior to the hospital presentation. Patient was admitted to the telemetry floor later trasferred to ICU for management of following issues; 1. NSTEMI 2. Mild interstitial edema 3. h/o MS, HTN and HLD 4. SIRS - Fever and Leucocytosis ( livkely reactive, no granulocytosis ) Patient's initial EKG showed q waves in ant leads,left axis deviation and poor R -wave progression consistent with anterior ME. Initial troponin was negative but the second troponin level peaked to 19.0. Cardiology consult was called and patient was started on aspirin 325 mg daily, IV heparin, nitroglycerin, high- dose atorvastatin, and Plavix. Patient also had a 3 minute run of V. tach on monitoring specialist and was transferred to ICU. Echocardiogram was ordered which was pending. Home medications including metoprolol and lisinopril were continued. As patient spiked a fever of 101.4 (likely inflammatory response) obtained blood, urine and sputum cultures. Results are pending ICU course Patient remained chest pain free and continued on heparin drip. Troponin continued to trend up from 19 to 35 at 8pm Given hemodynamically stable and asymptomatic we continued to trend troponins overnight trended up to 36. The pt is currently being transfered to [facility] for cardiac catheterization in am. Allergies: Coded Allergies: NO KNOWN ALLERGIES (10/01/17) Significant Procedures: XRY-PORTABLE CHEST XRAY FINDINGS: Reexamination shows the onset of bilateral interstitial pulmonary edema consistent with cardiac failure. There may be trace bilateral pleural effusions. IMPRESSION: Interstitial pulmonary edema. Pertinent Lab Results: Troponin 19.0 Disposition Summary Disposition Principal Diagnosis: acute myocardial infarction Additional Diagnosis: Interstitial edema H/O MS, HTN and HLD Leucocytosis ( livkely reactive, no granulocytosis ) Discharge Disposition: other general hospital Discharge Instructions General Discharge Information Code Status: Full Code Patient's Diet: Heart Healthy Patient's Activity: As tolerated Follow-Up Instructions/Appts: Please follow up with with your threader operator within a week after discharge. Medications at Discharge Discharge Medications: Stop taking the following medications: Aspirin (Aspirin*) 81 MG TAB.CHEW ORAL DAILY Atorvastatin Calcium (Lipitor) 10 MG TABLET ORAL DAILY Continue taking these medications: Lisinopril (Lisinopril) 10 MG TABLET 1 Tablet ORAL DAILY Finasteride (Proscar) 5 MG TABLET 1 Tablet ORAL DAILY Metoprolol Tartrate (Lopressor) 50 MG TABLET 1 Tablet ORAL TWICE DAILY Start taking the following new medications: Atorvastatin Calcium (Atorvastatin Calcium) 80 MG TABLET 1 Tablet ORAL DAILY Qty = 30 No Refills Nitroglycerin (Nitro-Bid) 2 % OINT...G. 0.5 Gram On the skin EVERY SIX HOURS as needed for CHEST PAIN Qty = 1 No Refills Aspirin (Ecotrin*) 325 MG TABLET.DR 1 Tablet ORAL DAILY Qty = 30 No Refills Clopidogrel Bisulfate (Plavix) 75 MG TABLET 1 Tablet ORAL DAILY Qty = 30 No Refills Heparin Sod,Porcine/0.9 % NaCl (Heparin 2,500 Unit/500 Ml-Ns) 2,500 UNIT/500 ML (5 UNIT/ML) IV.SOLN 0 IV CONTINUOUS INFUSION Qty = 1 No Refills Instructions: 12 UNITS/KG/H PTT BOLUS STOP CHANGE NEXT PTT <45 60U/KG 0 INCRE 4U/KG/H 6 45-60 30U/KG 0 INCRE 2U/KG/H 6 61-90 0 0 NONE 12 91-100 0 0 DECRE 2U/KG/H 6 >100 0 60MINS DECR 4U/KG/H 6 Copies To: Sebastian LUEVANO PHD,Bryan Jackman MD Review Statement Documenting Attending: Megha Alvarez MD Other Findings: Patient's troponin trended up following admission. Second troponin was 19.0 up from 0.04. He complained briefly of chest pain. It abated spontaneously. He did have Nitropaste on him at that time. He was hemodynamically stable. EKG was repeated on change. Was evaluated by the cardiology service and transferred to the intensive care unit for further management. He was started on intravenous heparin and continue on beta-cassius and statin therapy. He was loaded with Plavix and high-dose statin was ordered. Overnight troponins can continue to trend up to 35.6 last night and 36.5 and the early hours of this morning. He apparently remained pain-free and hemodynamically stable all through. He also developed a fever of 101 overnight. Blood cultures were drawn. This morning patient has been transferred to [facility] for cardiac catheterization. Further clinical course will be determined by the medical team there. Bryan Cortes MD the patient's threader operator will be notified of patient's fever overnight.
[2017-12-29] MEDS ORDERED: HEPARIN 2,2500 UNIT/ IV (18:10)
--- NOTE | 2017-12-29 22:04 | Event Note ---
Event Note Event Note: Situation Troponin elevated to 35 Brief Patient is a 77 YO M with no significant cardiac history, former 30 pack yr smoking presented with chest pain this morning. Intial troponin was negative with incomplete LBBB, however subsequent troponins tredended up 0.04-->19-->35. Patient was staretd on ACS protocol and remained symptom free. He sustained a fever of 101.4 in the evening. EKG - sinus rhythm with LBBB, first degree AV block, left axis deviation and abnormal R wave progression. Roselyn T wave inversions appreciated in the anterior leads progressing with each serial EKG Assessment Patient is a 77 YO M with no known CAD presented with possible acute anteroir MT. EKG changes are consistent with anterior MT given new LBBB, left axis deviation, abnormal R wave progression. Troponin trended up 0.04--> 19--35. Patient sustained a fever of 101.4 corresponds with inflammatory response. Vitals are stable with HR 60, BP 110-130/50-60mmHg, saturating well. Plan Patient is hemodynamically stable and chest pain free so we will trend troponins overnight and plan to transfer in the morning for cardiac catheterization to [facility]. We will continue to trend troponins till they peak. In case of decompensation (for ex- hypotension, desaturation) we will transfer patient stat. Situation is well outlined to Senior Sous Chef and Electricity Trader and in agreement with everyone. in agreement with everyone.
[2017-12-29 23:28] LABS: PTT > 120 SEC (25-37)
[2017-12-30] VITALS: BP 108/60
[2017-12-30 05:12] LABS: ABSOLUTE BASOPHIL COUNT 0 /CUMM (0.0-0.2); ABSOLUTE EOSINOPHIL COUNT 0.1 /CUMM (0.0-0.7); ABSOLUTE GRANULOCYTE CT 10.8 /CUMM (1.4-6.5); ABSOLUTE LYMPH COUNT 0.8 /CUMM (1.2-3.4); ABSOLUTE MONOCYTE COUNT 1.6 /CUMM (0.10-0.60); BASOPHIL % 0.2 % (0.0-2.0); EOSINOPHIL % 0.9 % (0-5); GRANULOCYTE % 80.9 % (42.2-75.2); HEMATOCRIT 36.7 % (42-52); MEAN CORPUSCULAR HGB CONC 34.1 G/DL (33.0-37.0); MEAN CORPUSCULAR VOLUME 96.8 FL (80.0-94.0); MEAN PLATELET VOLUME 8.9 FL (7.4-10.4); PLATELET COUNT 230 /CUMM (130-400); RBC DISTRIBUTION WIDTH 13.2 % (11.5-14.5); RED BLOOD CELL CT 3.79 /CUMM (4.70-6.10); WHITE BLOOD CELL COUNT 13.3 /CUMM (4.8-10.8)
[2017-12-30 07:25] LABS: PTT 54 SEC (25-37)
--- NOTE | 2017-12-31 08:43 | ECHOCARDIOGRAM REPORT ---
HAM HAIRSTON Age: 77 : 1940 Gender: M Exam Date: 12/29/2017 19:08 Exam Location: [facility] Ht (in): 72 Wt (lb): 175 BSA: 2.01 BP: 128 / 75 Ordering Physician: Santiago Gordon MD Referring Physician: Bryan Cortes MD, PhD Technologist: Shanon Garsia [facility] Room Number: 105 Indications: Heart failure Rhythm: Sinus Technical Quality: good FINDINGS Left Ventricle Normal left ventricular size with moderate left ventricular hypertrophy. Normal systolic function with anterior wall hypokinesis. Normal left ventricular diastolic filling pattern for age. The ejection fraction is visually estimated at 60%. Right Ventricle The right ventricle is normal in size and function. Right Atrium The right atrium is normal in size. Left Atrium The left atrium is normal in size. The interatrial septum is intact. Mitral Valve The mitral valve is normal in structure and function. There is mild to moderate mitral regurgitation. Aortic Valve Structurally normal aortic valve without significant sclerosis or stenosis. There is trace aortic regurgitation. Tricuspid Valve The tricuspid valve is normal in structure and function. There is trace tricuspid regurgitation. Pulmonary artery systolic pressure is normal. Pulmonic Valve Structurally normal pulmonic valve. There is no pulmonic regurgitation. Pericardium Normal pericardium without effusion. No pleural effusion. Great Vessels Normal aortic root dimension. The aortic arch and great vessels are well seen and are normal. CONCLUSIONS 1. Normal EF of 60% with anterior wall hypokinesis. 2. Moderate left ventricular hypertrophy. 3. Mild to moderate mitral regurgitation. 4. Trace tricuspid regurgitation. 5. Trace aortic regurgitation. Bryan Cortes M.D. (Electronically Signed) Final Date: 31 December 2017 08:42 MEASUREMENTS (Male / Female) Normal Values 2D ECHO LV Diastolic Diameter PLAX 3.6 cm 4.2 - 5.9 / 3.9 - 5.3 cm LV Systolic Diameter PLAX 2.4 cm 2.1 - 4.0 cm LV Fractional Shortening PLAX 33.3 % 25 - 46 % LV Ejection Fraction 2D Teich 63.0 % IVS Diastolic Thickness 1.5 cm LVPW Diastolic Thickness 1.5 cm LV Relative Wall Thickness 0.8 RV Internal Dim ED PLAX 3.2 cm 1.9 - 3.8 cm LVOT Diameter 2.1 cm Aortic Root Diameter 2.8 cm LA Systolic Diameter LX 3.8 cm 3.0 - 4.0 / 2.7 - 3.8 cm LA Volume 55.0 cm 18 - 58 / 22 - 52 cm Ascending Aorta Diameter 3.1 cm DOPPLER AV Peak Velocity 132.0 cm/s AV Peak Gradient 7.0 mmHg AV Mean Velocity 88.8 cm/s AV Mean Gradient 4.0 mmHg AV Velocity Time Integral 32.1 cm LVOT Peak Velocity 101.0 cm/s LVOT Peak Gradient 4.1 mmHg LVOT Mean Velocity 70.5 cm/s LVOT Mean Gradient 2.0 mmHg LVOT Velocity Time Integral 20.4 cm LVOT Stroke Volume 70.7 cm AV Area Cont Eq vti 2.2 cm AV Area Cont Eq pk 2.7 cm MV Peak Velocity 133.0 cm/s MV Peak Gradient 7.1 mmHg MV Mean Velocity 66.1 cm/s MV Mean Gradient 2.0 mmHg Mitral E Point Velocity 122.0 cm/s Mitral A Point Velocity 37.0 cm/s Mitral E to A Ratio 3.3 MV PHT Velocity 140.0 cm/s MV Deceleration [place] 482.0 cm/s MV Pressure Half Time 87.1 ms MV Area PHT 2.5 cm MV Deceleration Time 169.0 ms TR Peak Velocity 95.0 cm/s TR Peak Gradient 3.6 mmHg Right Atrial Pressure 5.0 mmHg Pulmonary Artery Systolic Pressure 8.6 mmHg Right Ventricular Systolic Pressure 8.6 mmHg PV Peak Velocity 83.2 cm/s PV Peak Gradient 2.8 mmHg PV Mean Velocity 53.6 cm/s PV Mean Gradient 1.0 mmHg PV Velocity Time Integral 16.4 cm LV E' Lateral Velocity 4.3 cm/s Mitral E to LV E' Lateral Ratio 28.4 LV E' Septal Velocity 3.6 cm/s Mitral E to LV E' Septal Ratio 33.8
== END 2017-12-30 07:45 | disposition short-term general hospital (02) | DRG 281 ==
LOC: ERH 05:34 → ERHI 07:11 → CRI 07:11 → ENRESERV 08:41 → ENTRNSPT 09:45 → EDTRNSPT 09:50 → EDTRNSPTSTS 09:50 → 1NO 09:56 → CMPTRNSPT 10:07 → CRI 17:19
PROVIDERS: Emergency Medicine; Internal Medicine; Internal Medicine Endocrinology, Diabetes & Metabolism
DX: I21.4 Non-ST elevation (NSTEMI) myocardial infarction (principal); I47.2 Ventricular tachycardia; J81.1 Chronic pulmonary edema; R65.10 Systemic inflammatory response syndrome (SIRS) of non-infectious origin without acute organ dysfunction; R50.9 Fever, unspecified; I44.7 Left bundle-branch block, unspecified; G35 Multiple sclerosis; I10 Essential (primary) hypertension; E78.5 Hyperlipidemia, unspecified; Z87.891 Personal history of nicotine dependence; D72.829 Elevated white blood cell count, unspecified; I44.0 Atrioventricular block, first degree
CPT/HCPCS: CCU; 36415; 36592; 71045; 82436; 87040; 87070; 87086; 93005; 93010; 93306; J1644; J1940; J3490